=== PATIENT | female | born 1930 | race Caucasian/White ===

== ENCOUNTER 2016-06-30 20:21 | Emergency (ER) | payer MEDICARE ==
[~2016-06-30] VITALS: Ht 160 cm; Wt 98.6 kg
[~2016-06-30 20:21] MED LIST: ALBU18HF INH; ASPI-973 PO; ATRO2DRO4 PO; FOLI1TAB18 PO; GLPZ5T PO; NYST60PO TP; OXYC20TA55 PO; OXYC5TAB72 PO; POTA20TA16 PO; TORS20TA3 PO; ZYL100 PO
[2016-06-30 20:24] VITALS: BP 130/74; PULSE 90; RESP 16; O2SAT 97
--- NOTE | 2016-06-30 21:27 | ED.REPORT ---
HPI-General Illness Date of Service Jun 30, 2016 ED Provider: Dr. Grayson Pt is an 85 y/o female w/ a hx of multiple myeloma, CKD, diabetes, presenting to the ED due to hematuria onset today. Pt noticed hematuria without other symptoms and decided to be checked out. She denies abdominal pain, fever, chills , flank pain, dysuria, urinary frequency. She is not anticoagulated. Nursing Notes Stated Complaint: URINATING BLOOD Chief Complaint: Female Abdominal Pain Nursing Notes Reviewed: Yes Allergies: Coded Allergies: cephalexin (Verified Allergy, Severe, uticaria, 06/24/16) Scheduled Allopurinol (Allopurinol) 100 Mg Tablet 200 MG PO DAILY Aspirin (Aspirin) 81 Mg Tablet 81 MG PO DAILY Folic Acid (Folic Acid) 1 Mg Tablet 1 MG PO DAILY Glipizide (Glipizide) 5 Mg Tablet 5 MG PO DAILY Nystatin (Nystop) 60 Gm Powder 1 APPLIC TP BID To affected area Potassium Chloride (Potassium Chloride) 20 Meq Tab.er.prt 40 MEQ PO DIRECTED TAKE WITH FOOD - MON, WED, FRI Sulfamethoxazole/Trimeth 800-160 mg (Bactrim DS) 1 Each Tablet 1 TABLET PO BID Torsemide (Torsemide) 20 Mg Tablet 40 MG PO DAILY Torsemide (Torsemide) 20 Mg Tablet 20 MG PO Noon Scheduled PRN Albuterol Sulfate (Ventolin HFA Inhaler) 200 Puff/18 Gm Inhaler 2 PUFF INH Q4- 6H PRN PRN For Wheezing Atropine 1% Ophthalmic Drops (Atropine 1% Ophthalmic Drops) 1 % Drops 2-4 DRP PO Q1H PRN PRN to control secretions Oxycodone ER (Oxycontin) 20 Mg Tab.er.12h 20 MG PO BID PRN PRN For Pain oxyCODONE (oxyCODONE) 5 Mg Tablet 5-10 MG PO Q6HRS PRN PRN For Pain General Time Seen by MD: 21:26 Chief Complaint Other (Hematuria) Hx Obtained From: Patient Arrived By: Walk-in Sudden in Onset?: Yes Onset Occurred: 5 - 8 hours ago Symptom Duration: Since onset Severity: Current: No pain currently Severity: Maximum: No pain Past Medical History Past Medical History Notes: oncologist Leandro Alegria - SEE NOTE 06/10/2016 (considering hospice) PCP: Dr. Decker Echo 01/2016: EF 75-80% Past Medical History 1. Hypertension. 2. Dyslipidemia. 3. Obstructive sleep apnea, severe. 4. 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 - was on 4th line chemotherapy w/carfilzomib and dexamethasone, last given 02/2016 DC'd due to side effects. 5. arthritis 6. anxiety 7. Chronic kidney disease, multifactorial, including monoclonal immunoglobulin deposition disease. 8. Congestive heart failure, with her last echocardiogram on April 09, 2016, reporting an EF of 75% to 80%. 9. Degenerative joint disease. Reports: Diabetes mellitus Reports: Atrial fibrillation, Depression Past Surgical History Pacemaker Port a Cath Smoking History Never Smoker Social History Alcohol Use: Denies alcohol use Drug Use: Denies drug use Other Social History: Good social support, Ambulatory Status Wheelchair Review of Systems Full Review of Systems Constitutional: Denies: Chills, Fever GI: Denies: Abdominal pain, Nausea, Vomiting Female: Reports: Hematuria, Denies: Dysuria, Flank pain, Urinary frequency, Urinary urgency, Urination decreased, Urination increased Complete sys rev & neg: except as marked. Physical Exam Vital Signs Vital Signs Date Time Temp Pulse Resp B/P Pulse Ox O2 Delivery O2 Flow Rate FiO2 06/30/16 22:01 88 18 129/78 97 Room Air 06/30/16 20:24 36.2 90 16 130/74 97 Room Air Initial VS: Reviewed, Vital signs normal Head / Eyes: Atraumatic, Normocephalic, PERRL ENT: Mucous membranes moist, Conjunctiva normal, No scleral icterus Neck: Supple, Full range of motion Respiratory: No respiratory distress Cardiovascular: Intact distal pulses Skin: Warm, Dry, No cyanosis Neurologic: Alert, Oriented, Nonfocal Psychiatric: Mood/affect normal, Behavior normal, Normal thought content General/Constitutional: Awake, Alert, No acute distress, Cooperative, Not toxic appearing Appearance / Presentation: Positive: Obese Abdomen: Atraumatic, Soft, No guarding, No distention Tenderness/Guarding/Rebound: Positive: Tender suprapubic (mild) Interpretation & Diagnostics Lab Results Interpretation Test 06/30/16 21:20 Urine Color Yellow (YELLOW) Urine Appearance Hazy (CLEAR,HAZY) Urine pH 6.5 (5.0-8.0) Urine Specific [place] 1.015 (1.003-1.035) Urine Protein 30mg/dL (NEG,TRACE) Urine Glucose (UA) Negativemg/dL (NEGATIVE) Urine Ketones Negativemg/dL (NEGATIVE) Urine Occult Blood Large (NEGATIVE) Urine Nitrite Negative (NEGATIVE) Urine Bilirubin Negative (NEGATIVE) Urine Urobilinogen Normalmg/dL (NORMAL) Urine Leukocyte Esterase Moderate (NEGATIVE) Urine RBC 3-10/hpf (0-2) Urine WBC 0-5/hpf (0-5) Urine Epithelial Cells None/hpf (NONE-MOD) Urine Crystals None seen (NONE SEEN) Urine Bacteria Few/hpf (NONE-FEW) Urine Hyaline Casts None/lpf (NONE) Urine Granular Casts None seen (NONE SEEN) Urine Waxy Casts None seen (NONE SEEN) Urine Red Blood Cell Casts None seen (NONE SEEN) Urine White Blood Cell Casts None seen (NONE SEEN) Urine Mucus Present (None Seen) Urine Trichomonas None seen (NONE SEEN) Urine Yeast None (NONE SEEN) Urinalysis Comment None Urine Culture Reflexed Indicated Re-Eval/Medical Decision Med Decision/Clinical Course 85-year-old presents with malcolm hematuria and a urinalysis consistent with urinary tract infection. She has no flank pain no fever no sepsis signs. Begun with Bactrim DS as she is allergic to cephalosporins. No particular discomfort so she does call lines peridium. Follow up with PCP. Culture pending. Time of Eval: 21:32 Re-Evaluation/Progress Note: Pt rechecked. Informed pt of plan for treatment. Pt understands and agrees with plan for treatment. F/U and RTER warnings given. All questions addressed. Counseled Regarding: Diagnosis, Lab results, Need for follow-up, When/why to return to ED Discharge & Departure Primary Impression: Urinary tract infection Urinary tract infection type: site unspecified Hematuria presence: with hematuria Qualified Code: N39.0 - Urinary tract infection, site not specified Additional Impression: Hemorrhagic cystitis Disposition: Home Discharge Condition All VS Reviewed: Yes Condition: Stable Patient Instructions: Urinary Tract Infection in Women (ED) Referrals: Hernan Decker (PCP) Sharan Attestation Portions of this note were transcribed by Cresencio Suazo. I, Dr. Grayson personally performed the history, physical exam and medical decision-making; I reviewed and confirmed the accuracy of the information in the transcribed note. Signed by Sharan Werner, 06/30/162127 copies to: Hernan Decker Christopher W MD Jun 30, 2016 21:27 CRESENCIO SUAZO Jun 30, 2016 21:31
[2016-06-30] MEDS ORDERED: Trimethoprim-Sulfa 160 mg-800 mg Tablet PO ONE (21:35)
[2016-06-30] MEDS ORDERED: SULF1TAB7 PO (21:35)
[2016-06-30 21:36] LABS: APPEARANCE,URINE HAZY (CLEAR,HAZY); COLOR,URINE YELLOW (YELLOW); OCCULT BLOOD,URINE LARGE (NEGATIVE); PH,URINE 6.5 (5.0-8.0); UROBILINOGEN,URINE NORMAL (NORMAL)
[2016-06-30 22:01] VITALS: BP 129/78; PULSE 88; RESP 18; O2SAT 97
[2016-07-17] MEDS ORDERED: FURO-129 PO (16:23)
[2016-07-17] MEDS ORDERED: POTA20TA16 PO (16:25)
[2016-10-02] MEDS ORDERED: ACET325T51 PO (14:07)
[2016-10-02] MEDS ORDERED: ACYC400T2 PO (14:07)
[2016-10-02] MEDS ORDERED: ACET-2766 PO (14:07)
[2016-10-02] MEDS ORDERED: MONT10TA23 PO (14:07)
[2016-10-02] MEDS ORDERED: GLPZ5T PO (14:07)
== END 2016-06-30 22:02 | disposition home or self-care (01) ==
LOC: SED 20:21
DX: N30.91 Cystitis, unspecified with hematuria (principal); E11.22 Type 2 diabetes mellitus with diabetic chronic kidney disease; N18.9 Chronic kidney disease, unspecified; I12.9 Hypertensive chronic kidney disease with stage 1 through stage 4 chronic kidney disease, or unspecified chronic kidney disease; E11.59 Type 2 diabetes mellitus with other circulatory complications; I50.9 Heart failure, unspecified; Z95.0 Presence of cardiac pacemaker; Z79.82 Long term (current) use of aspirin; Z88.1 Allergy status to other antibiotic agents

== ENCOUNTER 2016-07-09 17:10 | Emergency (ER) | payer MEDICARE ==
[~2016-07-09] VITALS: Ht 157.5 cm; Wt 98.6 kg
[~2016-07-09 17:10] MED LIST changes: +SULF1TAB7 PO
[2016-07-09 17:13] VITALS: BP 125/55; PULSE 93; RESP 18; O2SAT 94
[2016-07-09 18:08] LABS: BASOPHILS % (AUTO) 0.4 % (0-3); EOSINOPHILS % (AUTO) 0 % (0-5); Mean Corpuscular Hemoglobin 31.6 pg (27.0-35.0); Mean Corpuscular Volume 97.1 fL (81-100); NEUTROPHILS % (AUTO) 72.4 % (40-74); Platelet Count 268 bil/L (150-400)
--- NOTE | 2016-07-09 21:10 | ED.REPORT ---
HPI-General Illness Date of Service Jul 09, 2016 ED Provider: Thiago Olivera MD 85 year old diabetic female with a history of chronic kidney disease and current known UTI presents to the ER accompanied by her complaining of blood in her urine. Associated symptom of right flank pain. June 30 she was diagnosed with UTI with urine culture that grew multiple joe. Since July 01 she has been on a course of antibiotics. Associated symptom of dizziness. Patient denies flank pain, dysuria, nausea, and vomiting. Nursing Notes Stated Complaint: POSS UTI Chief Complaint: Female Abdominal Pain Nursing Notes Reviewed: Yes Allergies: Coded Allergies: cephalexin (Verified Allergy, Severe, uticaria, 06/24/16) Scheduled Allopurinol (Allopurinol) 100 Mg Tablet 200 MG PO DAILY Aspirin (Aspirin) 81 Mg Tablet 81 MG PO DAILY Folic Acid (Folic Acid) 1 Mg Tablet 1 MG PO DAILY Glipizide (Glipizide) 5 Mg Tablet 5 MG PO DAILY Nystatin (Nystop) 60 Gm Powder 1 APPLIC TP BID To affected area Potassium Chloride (Potassium Chloride) 20 Meq Tab.er.prt 40 MEQ PO DIRECTED TAKE WITH FOOD - MON, WED, FRI Sulfamethoxazole/Trimeth 800-160 mg (Bactrim DS) 1 Each Tablet 1 TABLET PO BID Torsemide (Torsemide) 20 Mg Tablet 40 MG PO DAILY Torsemide (Torsemide) 20 Mg Tablet 20 MG PO Noon Scheduled PRN Albuterol Sulfate (Ventolin HFA Inhaler) 200 Puff/18 Gm Inhaler 2 PUFF INH Q4- 6H PRN PRN For Wheezing Atropine 1% Ophthalmic Drops (Atropine 1% Ophthalmic Drops) 1 % Drops 2-4 DRP PO Q1H PRN PRN to control secretions Oxycodone ER (Oxycontin) 20 Mg Tab.er.12h 20 MG PO BID PRN PRN For Pain oxyCODONE (oxyCODONE) 5 Mg Tablet 5-10 MG PO Q6HRS PRN PRN For Pain General Time Seen by MD: 21:06 Chief Complaint Other (Blood in Urine) Hx Obtained From: Patient, Spouse Arrived By: Walk-in Sudden in Onset?: No Onset Occurred: Just prior to arrival Associated with: Denies: Fever, Nausea, Vomiting Past Medical History Past Medical History Notes: oncologist Leandro Alegria - SEE NOTE 06/10/2016 (considering hospice) PCP: Dr. Decker Echo 01/2016: EF 75-80% Past Medical History 1. Hypertension. 2. Dyslipidemia. 3. Obstructive sleep apnea, severe. 4. 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 - was on 4th line chemotherapy w/carfilzomib and dexamethasone, last given 02/2016 DC'd due to side effects. 5. arthritis 6. anxiety 7. Chronic kidney disease, multifactorial, including monoclonal immunoglobulin deposition disease. 8. Congestive heart failure, with her last echocardiogram on April 09, 2016, reporting an EF of 75% to 80%. 9. Degenerative joint disease. Reports: Diabetes mellitus Reports: Atrial fibrillation, Depression Past Surgical History Pacemaker Port a Cath Smoking History Never Smoker Social History Alcohol Use: Denies alcohol use Drug Use: Denies drug use Other Social History: Good social support, Ambulatory Status Wheelchair Review of Systems Full Review of Systems Constitutional: Denies: Chills, Fever Respiratory: Denies: Non-productive cough, Shortness of breath Cardiovascular: Denies: Chest pain GI: Denies: Abdominal pain, Diarrhea, Nausea, Vomiting Female: Reports: Hematuria Neurologic: Denies: Confusion Complete sys rev & neg: except as marked. Physical Exam Vital Signs Vital Signs Date Time Temp Pulse Resp B/P Pulse Ox O2 Delivery O2 Flow Rate FiO2 07/10/16 00:16 36.8 81 22 124/64 92 Room Air 07/09/16 23:03 80 16 133/60 95 Room Air 07/09/16 17:13 36.1 93 18 125/55 94 Initial VS: Reviewed, Vital signs normal Head / Eyes: Atraumatic, Normocephalic Neck: Supple, Non-tender, Full range of motion Abdomen / GI: Soft, Non-tender, No guarding, No rebound, No distention Back: No CVA tenderness Extremities: Vascular intact, Neuro intact, No swelling, No tenderness Skin: Warm, Dry, No cyanosis Neurologic: Alert, Oriented, Nonfocal Psychiatric: Mood/affect normal, Behavior normal, Normal thought content General/Constitutional: Awake, Alert, Well appearing, Well developed, Well nourished Respiratory / Chest: Breath sounds NL, No respiratory distress, No rales, No rhonchi, No wheezing Cardiovascular: Heart rate NL, Regular rhythm, Heart sounds NL, Cap refill not delayed, Peripheral circulation NL Interpretation & Diagnostics Lab Results Interpretation Result Diagram: 07/09/16 1757 07/09/16 1757 Test 07/09/16 17:57 07/09/16 20:50 White Blood Count 8.2th/mm3 (3.8-10.1) Red Blood Count 3.80mil/mm3 (3.90-5.20) Hemoglobin 12.0g/dL (12.0-15.6) Hematocrit 36.9% (35.0-46.0) Mean Corpuscular Volume 97.1fL (81-100) Mean Corpuscular Hemoglobin 31.6pg (27.0-35.0) Mean Corpuscular Hemoglobin Concent 32.5% (32.0-37.0) Red Cell Distribution Width 14.4% (12.3-15.4) Platelet Count 268bil/L (150-400) Neutrophils (%) (Auto) 72.4% (40-74) Lymphocytes (%) (Auto) 18.1% (14-46) Monocytes (%) (Auto) 9.0% (4-12) Eosinophils (%) (Auto) 0% (0-5) Basophils (%) (Auto) 0.4% (0-3) Sodium Level 133mEq/L (134-144) Potassium Level 4.3mEq/L (3.5-5.2) Chloride Level 88mEq/L (97-108) Carbon Dioxide Level 29mmol/L (18-29) Blood Urea Nitrogen 29mg/dL (8-27) Creatinine 1.78mg/dL (0.57-1.00) Estimat Glomerular Filtration Rate 39mL/min (>59) Glucose Level 271mg/dL (60-99) Calcium Level 8.9mg/dL (8.5-10.1) Total Bilirubin 0.2mg/dL (0.0-1.2) Aspartate Amino Transf (AST/SGOT) 15U/L (0-50) Alanine Aminotransferase (ALT/SGPT) 13U/L (0-32) Alkaline Phosphatase 98U/L (25-165) Total Protein 6.0g/dL (6.4-8.4) Albumin 3.9g/dL (3.4-5.0) [place] Top Tube Received (Received) Urine Color Yellow (YELLOW) Urine Appearance Clear (CLEAR,HAZY) Urine pH 7.0 (5.0-8.0) Urine Specific [place] 1.010 (1.003-1.035) Urine Protein Negativemg/dL (NEG,TRACE) Urine Glucose (UA) 500mg/dL (NEGATIVE) Urine Ketones Negativemg/dL (NEGATIVE) Urine Occult Blood Small (NEGATIVE) Urine Nitrite Negative (NEGATIVE) Urine Bilirubin Negative (NEGATIVE) Urine Urobilinogen 0.2mg/dL (NORMAL) Urine Leukocyte Esterase Small (NEGATIVE) Urine RBC 11-50/hpf (0-2) Urine WBC 6-10/hpf (0-5) Urine Epithelial Cells Occasional/hpf (NONE-MOD) Urine Crystals None seen (NONE SEEN) Urine Bacteria Few/hpf (NONE-FEW) Urine Hyaline Casts None/lpf (NONE) Urine Granular Casts None seen (NONE SEEN) Urine Waxy Casts None seen (NONE SEEN) Urine Red Blood Cell Casts None seen (NONE SEEN) Urine White Blood Cell Casts None seen (NONE SEEN) Urine Mucus None seen (None Seen) Urine Trichomonas None seen (NONE SEEN) Urine Yeast None (NONE SEEN) Urinalysis Comment None Urine Culture Reflexed Indicated Lab Results Interpretation: Mild renal insufficiency, hyperglycemia. Hematuria and pyuria, culture pending CT Abd / Pelvis Interpretation CONCLUSION: No hydronephrosis or nephrolithiasis. Appendix not identified. Diverticulosis with no evidence of diverticulitis. Small hiatal hernia. Electronically signed by Patrick Brown MD Interpretation / Wet Read by: Interpret - Radiologist Re-Eval/Medical Decision Med Decision/Clinical Course Persistent urinary tract symptoms despite management with Septra. Mixed joe on the previous culture CT KUB was done because of concern for kidney stone. It was normal. Reculture and switch her antibiotics to Augmentin. Source of Hx: Old records Time of Eval: 22:22 Re-Evaluation/Progress Note: Discussed lab results and need for CT scan. Updated patient on the plan of care. Time of Eval: 23:17 Re-Evaluation/Progress Note: Discussed CT results and plan to discharge. Patient is amenable to the plan. Return precautions given. Verbal discharge instructions given. All other questions addressed. Counseled Regarding: Diagnosis, Lab results, Need for follow-up, When/why to return to ED Discharge & Departure Primary Impression: Urinary tract infection Urinary tract infection type: acute cystitis Hematuria presence: with hematuria Qualified Code: N30.01 - Acute cystitis with hematuria Disposition: Home Discharge Condition All VS Reviewed: Yes Condition: Stable Patient Instructions: Urinary Tract Infection in Women (ED) Additional Instructions: It appears that your urinary tract infection bacteria is not sensitive to the antibiotic you are on. The original culture did not grow a specific organism so we cannot prove that. There is no evidence of anything more serious going on like kidney infection or kidney stone. Stop the current antibiotic. Start amoxicillin/clavulanate 875 mg twice daily, #20 prescription dispensed. Drink plenty of fluids. Follow-up with your regular doctor in the next day or 2 if not improving. Return to the emergency room or call me at [phone] between the hours of 9 PM and 6 PM tonight or tomorrow night if you have any questions or concerns. Referrals: Hernan Decker (PCP) Scribe Attestation Portions of this note were transcribed by Tom Gray. I, Dr. Olivera, personally performed the history, physical exam and medical decision-making; I reviewed and confirmed the accuracy of the information in the transcribed note. Signed by: Sharan Dill. 07/09/2016, 23:34 copies to: Hernan Decker Howard L MD Jul 09, 2016 21:10 TOM GRAY Jul 09, 2016 21:16
[2016-07-09 22:08] LABS: APPEARANCE,URINE CLEAR (CLEAR,HAZY); COLOR,URINE YELLOW (YELLOW); OCCULT BLOOD,URINE SMALL (NEGATIVE); UROBILINOGEN,URINE 0.2 mg/dL (NORMAL)
[2016-07-09 23:03] VITALS: BP 133/60; PULSE 80; RESP 16; O2SAT 95
[2016-07-10 00:16] VITALS: BP 124/64; PULSE 81; RESP 22; O2SAT 92
[2016-07-10] MEDS ORDERED: _Amoxicillin-Clavulanate 875-125 mg Tablet PO SCH (08:30)
[2016-07-10] MEDS ORDERED: AMOX-366 PO (09:18)
--- NOTE | 2016-07-10 14:05 | DRSVH ---
PROCEDURE: CT KUB ([id number]) INDICATIONS: hematuria, right flank pain TECHNIQUE: Noncontrast 5 mm thick sections acquired from the diaphragms to the symphysis. 5 mm thick coronal an d sagittal reformats were then performed. For radiation dose reduction, the following was used: aut omated exposure control, adjustment of mA and/or kV according to patient size. COMPARISON: [facility], CR, XR PELVIS 1 OR 2VW, 02/17/2016, 21:44. [facility], CR, XR CHEST 2VW, 02/27/2016, 9:00. [facility], CR, XR CHEST 1VW (PORTABLE), 6, 16:47. [facility], CT, L-SPINE W/O CONTRAST, 11/13/2012, 14:15. FINDINGS: Image quality: Excellent. Lung bases: Lung bases are clear. Heart size is normal. Urinary system: Both kidneys are normal in size. No kidney stones. No hydronephrosis or perinephri c fat stranding. Both ureters appear non-dilated throughout their expected courses. Bladder wall th ickness is normal; no calcified bladder stones. Other solid organs: Liver and spleen are normal in size. Gallbladder is unremarkable. Pancreas is normal in contours. No adrenal nodules. Peritoneum and bowel: Unenhanced bowel loops demonstrate normal wall thickness and caliber. No free fluid or air. Colonic diverticula are present. Nodes and vessels: No retroperitoneal or mesenteric adenopathy by size criteria. Aorta and inferior vena cava are normal in caliber. Abdominal wall: No ventral hernias. Pelvis: No free pelvic fluid. No inguinal hernias or adenopathy. Bones: No suspicious bony lesions. L5 compression deformity is noted. IMPRESSION: 1. No nephro or ureterolithiasis. 2. Diverticulosis. Dictated by: Jeanine Mcrae M.D. on 07/10/2016 at 14:04 Approved by: Jeanine Mcrae M.D. on 07/10/2016 at 14:04
[2016-07-17] MEDS ORDERED: FURO-129 PO (16:23)
[2016-07-17] MEDS ORDERED: POTA20TA16 PO (16:25)
[2016-10-02] MEDS ORDERED: MONT10TA23 PO (14:07)
[2016-10-02] MEDS ORDERED: ACYC400T2 PO (14:07)
[2016-10-02] MEDS ORDERED: GLPZ5T PO (14:07)
[2016-10-02] MEDS ORDERED: ACET325T51 PO (14:07)
[2016-10-02] MEDS ORDERED: ACET-2766 PO (14:07)
== END 2016-07-10 00:10 | disposition home or self-care (01) ==
LOC: SED 17:13
DX: N30.01 Acute cystitis with hematuria (principal); I13.0 Hypertensive heart and chronic kidney disease with heart failure and stage 1 through stage 4 chronic kidney disease, or unspecified chronic kidney disease; N18.9 Chronic kidney disease, unspecified; I50.9 Heart failure, unspecified; E11.9 Type 2 diabetes mellitus without complications; Z95.0 Presence of cardiac pacemaker; Z92.21 Personal history of antineoplastic chemotherapy; Z79.82 Long term (current) use of aspirin; Z88.1 Allergy status to other antibiotic agents